=== PATIENT | female | born 1960 | race Caucasian/White ===

== ENCOUNTER 2019-06-13 08:09 | Outpatient (CLI) | payer BC, SELFPAY ==
--- NOTE | ~2019-06-13 | US_ITS ---
EXAMINATION: US carotid duplex BI DATE: 06/13/2019 09:07 INDICATION: Carotid bruit TECHNIQUE: Grayscale, color Doppler, and pulsed Doppler images of the cervical carotid arteries were obtained. The degree of vessel stenosis is placed in one of the following categories: normal, <50%, 5 0-69%, >=70% but less than near-occlusion, near-occlusion, or total occlusion. Note that percent sten osis relative to normal distal artery lumen diameter is indirectly measured from velocity measurement s as described by Haris, et al. Radiology 2003; 229:340-346. Notes: Normal: Peak systolic velocity <125 centimeters/sec and no plaque <50%. Peak systolic velocity <125 ( EDV <40; ICA/CCA PSV ratio <2.0; used these factors only a tandem lesions or low cardiac output or co ntralateral disease) 50-69 %: PSV 125-230 (EDV 40-100; ratio 2-4) >= 70% but less than near occlusion: PSV greater than 230 (EDV > 100; ratio> 4.0) Near Occlusion: PSV that is variable; markedly narrowed lumen Occlusion: Absent flow on color/spectral Doppler and no lumen on zepeda scale. COMPARISON: None. FINDINGS: RIGHT: The right common carotid artery (CCA) peak systolic velocity (PSV) is 68 cm/s. The right internal car otid artery (ICA) PSV is 83 cm/s. The right ICA end-diastolic velocity (EDV) is 35 cm/s. The right IC A/CCA PSV ratio is 1.2. The external carotid artery (ECA) PSV is 88 cm/s. There is antegrade flow in the right vertebral artery. LEFT: The left CCA PSV is 86 cm/s. The left ICA PSV is 102 cm/s. The left ICA EDV is 34 cm/s. The left ICA/ CCA PSV ratio is 1.2. The ECA PSV is 73 cm/s. There is antegrade flow in the left vertebral artery. IMPRESSION: 1. Less than 50% stenosis in the right internal carotid artery by sonographic criteria. 2. Less than 50% stenosis in the left internal carotid artery by sonographic criteria. Reviewed, dictated and finalized at location A. ICAL ACCOUNT SPECIALIST IMPRESSION: 1. Less than 50% stenosis in the right internal carotid artery by sonographic lissy castañeda. 2. Less than 50% stenosis in the left internal carotid artery by sonographic maury anton.
--- NOTE | ~2019-06-13 | DEXA_ITS ---
BMD(1) Young-Adult(2) Age-Matched(3) Region (g/cm2) T-score Z-score WHO Classification L1 0.976 -1.3 -0.7 Osteopenia L2 0.912 -2.5 -1.8 Osteoporosis L3 1.119 -0.8 -0.1 Normal L4 1.049 -1.3 -0.7 Osteopenia L1-L4 1.020 -1.4 -0.7 Osteopenia Trend: L1-L4 Change vs Change vs Measured Age BMD(1) Baseline Previous Date (years) (g/cm2) (%) (%) 06/13/2019 [age] 1.020 baseline - 1 - Statistically 68% of repeat scans fall within 1SD (+- 0.010 g/cm2 for AP Spine L1-L4) 2 - [place] (Combined NHANES (ages 20-30) / [employer] (ages 20-40)) AP Spine Reference Population (v112) 3 - Matched for Age, Weight (females 25-100 kg), Ethnic 11 - World Health Organization - Definition of Osteoporosis and Osteopenia for Women: Normal = T-score at or above -1.0 SD; Osteopenia = T-score between -1.0 and -2.5 SD; Osteoporosis = T-score at or below -2.5 SD; (WHO definitions only apply when a young healthy Women reference database is used to determine T-scores.) Printed: 06/13/2019 8:50:48 AM (13.60)76:3.00:50.00:12.0 0.00:11.28 0.60x1.05 23.6:%Fat=35.3% 0.00:0.00 0.00:0.00 Filename: [id number] Scan Mode: Standard;OneScan 37.0 [facility] [id number] BMD(1) Young-Adult(2,7) Age-Matched(3) Region (g/cm2) T-score Z-score WHO Classification Neck Left 0.869 -1.2 -0.3 Osteopenia Right 0.888 -1.1 -0.2 Osteopenia Mean 0.879 -1.1 -0.2 Osteopenia Difference 0.018 0.1 0.1 - Total Left 0.970 -0.3 0.2 Normal Right 0.965 -0.3 0.2 Normal Mean 0.967 -0.3 0.2 Normal Difference 0.006 0.0 0.0 - Hip [place] Length Comparison (mm) (Right = 97.6 mm) (Mean = 104.0 mm) (Left = 97.5 mm) Trend: Total Mean Change vs Change vs Measured Age BMD(1) Baseline Previous Date (years) (g/cm2) (%) (%) 06/13/2019 58.5 0.967 baseline - 1 - Statistically 68% of repeat scans fall within 1SD (+- 0.010 g/cm2 for DualFemur Total) 2 - [place] (Combined NHANES (ages 20-30) / [employer] (ages 20-40)) Femur Reference Population (v112) 3 - Matched for Age, Weight (females 25-100 kg), Ethnic 7 - [employer] Total T-score difference is 0.0. Asymmetry is None. 11 - World Health Organization - Definition of Osteoporosis and Osteopenia for Women: Normal = T-score at or above -1.0 SD; Osteopenia = T-score between -1.0 and -2.5 SD; Osteoporosis = T-score at or below -2.5 SD; (WHO definitions only apply when a young healthy Women reference database is used to determine T-scores.) Printed: 06/13/2019 8:50:48 AM (13.60); Filename: [id number]; Right Femur; 20.1:%Fat=30.3%; Neck Angle (deg)= 60; Scan Mode: Standard 37.0 uGy; Left Femur; 20.0:%Fat=32.0%; Neck Angle (deg)= 53; Scan Mode: Standard 37.0 uGy Finder[employer] [id number] Dear Nancy Barton, Your patient Sinita Simon completed a BMD test on 06/13/2019 using the Finderly DXA System (analysis version: 13.60) manufactured by [employer]. The following summarizes the results of our evaluation. PATIENT BIOGRAPHICAL: Name: Sintia Simon Date: 1960 Height: 62.5 in. Gender: Female Exam Date: 06/13/2019 Weight: 170.0 lbs. Indications: Caffeinated drinks, , Hip Pain Fract
== END 2019-06-13 08:10 | disposition home or self-care (01) ==
LOC: CHSIMG 08:13
PROVIDERS: PCP Internal Medicine; Visit Provider Internal Medicine
DX: M81.0 Age-related osteoporosis without current pathological fracture (principal); R09.89 Other specified symptoms and signs involving the circulatory and respiratory systems
CPT/HCPCS: 77080; 93880

== ENCOUNTER 2020-08-17 09:06 | Outpatient (CLI) | payer BC, SELFPAY ==
[2020-08-17 10:12] LABS: Anion Gap 9 mmol/L (8-16); Blood Urea Nitrogen 21 mg/dL (7-18); Calcium 9.6 mg/dL (8.5-10.1); Carbon Dioxide 30 mmol/L (21-32); Chloride 98 mmol/L (98-108); Estimated Glomerular Filt Rate > 60; Glucose 125 mg/dL (70-99); Osmolality Calculated 288 mOsm/kg (285-295); Potassium 3.9 mmol/L (3.5-5.1); Sodium 137 mmol/L (136-145)
== END 2020-08-17 09:07 | disposition home or self-care (01) ==
LOC: CHSLAB 09:09
PROVIDERS: PCP Internal Medicine; Visit Provider Specialist
DX: I25.10 Atherosclerotic heart disease of native coronary artery without angina pectoris (principal); I10 Essential (primary) hypertension; Z95.5 Presence of coronary angioplasty implant and graft
CPT/HCPCS: 36415; 80048; 83735

== ENCOUNTER 2022-06-08 09:27 | Outpatient (CLI) | payer BC, SELFPAY ==
--- NOTE | ~2022-06-08 | MM_ITS ---
EXAMINATION: MM screening jessica BI w elham HISTORY: Screening mammogram TECHNIQUE: Craniocaudal and mediolateral oblique 3-D tomosynthesis images were obtained and synthetic 2-D images were generated. CAD analysis was submitted and interpreted. COMPARISON: 02/18/2021, 01/27/2020 bilateral screening mammogram examinations BREAST PARENCHYMAL COMPOSITION: There are scattered areas of fibroglandular density. FINDINGS: There is no evidence of suspicious mass, calcification, or architectural distortion to sugg est malignancy in either breast. There has been no suspicious interval change. IMPRESSION: 1. No mammographic evidence of malignancy. 2. Recommend routine screening mammography in one year. BI-RADS Category 1: Negative Reviewed, dictated and finalized at location A. LIARY POWER EQUIPMENT OPERATOR
== END 2022-06-08 09:28 | disposition home or self-care (01) ==
LOC: CHSIMG 09:28
PROVIDERS: PCP Internal Medicine; Visit Provider Internal Medicine
DX: Z12.31 Encounter for screening mammogram for malignant neoplasm of breast (principal)
CPT/HCPCS: 77063; 77067

== ENCOUNTER 2023-06-12 11:55 | Outpatient (CLI) | payer BC, SELFPAY ==
--- NOTE | ~2023-06-12 | DEXA_ITS ---
Bone Density Report Name: TIFFANIE SEPULVEDA Age: 62 Sex: Female Ethnicity: White Date of : 1960 Indication: postmenopausal; screening for osteoporosis; Referring Provider: Nancy Barton Study: Bone densitometry was performed. Exam Date: June 12, 2023 Accession number: [id number] Bone Density: Region BMD T-score Z-score Classification AP Spine(L1, L2, L4) 0.880 -1.4 0.2 Osteopenia Femoral Neck (Left) 0.805 -0.4 1.0 Normal Total Hip (Left) 0.914 -0.2 0.9 Normal Femoral Neck (Right) 0.765 -0.8 0.6 Normal Total Hip (Right) 0.890 -0.4 0.7 Normal Femoral Neck Mean 0.785 -0.6 0.8 Normal Total Hip Mean 0.902 -0.3 0.8 Normal World Health Organization criteria for BMD impression classify patients as: Normal (T-score at or above -1.0), Osteopenia (T-score between -1.0 and -2.5), or Osteoporosis (T-score at or below -2.5). 10-year Fracture Risk(1): Major Osteoporotic Fracture 7.1% Hip Fracture 0.4% Reported Risk Factors: [place] (), Neck BMD=0.765, BMI=30.2 (1) FRAX(R) Version 3.08. Fracture probability calculated for an untreated patient. Fracture probability may be lower if the patient has received treatment. Clinical Information Provided by Patient: Has used the following medications: Vitamin D, multi Patient maximum height was 62.5 Menopause Age: 52 No regular weight bearing exercise Drinks caffeinated beverages Onset of menses at age 12 Number of children 2 Impression: The patient has low bone mass, based on the Total Spine T-score. Discussion: BONE DENSITY IS LOW AT ONE OR MORE SKELETAL SITES. This patient's lowest T-score is low at one or more skeletal sites. It meets the World Health Organization's (WHO) criteria for ?low bone mass? (T-score between -1.0 and -2.5). The patient's 10-year risk of fracture as calculated by FRAX is less than the threshold where pharmacological therapy is recommended by the National Osteoporosis Foundation (NOF). However, all treatment decisions require clinical judgment and consideration of individual patient factors, including patient preferences, comorbidities, previous drug use, risk factors not captured in the FRAX model (e.g., frailty, falls, vitamin D deficiency, increased bone turnover, interval significant decline in bone density) and possible under or overestimation of fracture risk by FRAX. The patient should follow a healthful lifestyle (good nutrition with adequate calcium and vitamin D, and appropriate weight-bearing exercise). Follow-Up: Consider repeating this study in 2 to 3 years to reassess this patient's status, or sooner if there is some new clinical indication. Reported by: Dr. Peter Acosta on 06/12/2023 12:40:00 PM. Reviewed, dictated and finalized at location A.
--- NOTE | ~2023-06-12 | MM_ITS ---
EXAMINATION: MM screening jessica BI w elham HISTORY: Screening TECHNIQUE: Craniocaudal and mediolateral oblique 3-D tomosynthesis images were obtained and synthetic 2-D images were generated. CAD analysis was submitted and interpreted. COMPARISON: Comparison to multiple prior studies sequentially, with oldest reviewed study dated 08/2019. BREAST PARENCHYMAL COMPOSITION: Not dense: There are scattered areas of fibroglandular density. FINDINGS: There is no evidence of suspicious mass, calcification, or architectural distortion to sugg est malignancy in either breast. There has been no suspicious interval change. IMPRESSION: 1. No mammographic evidence of malignancy. 2. Recommend routine screening mammography in one year. BI-RADS Category 1: Negative Reviewed, dictated and finalized at location A. T I FARMWORKER
== END 2023-06-12 11:56 | disposition home or self-care (01) ==
LOC: CHSIMG 11:56
PROVIDERS: PCP Internal Medicine; Visit Provider Internal Medicine
DX: Z12.31 Encounter for screening mammogram for malignant neoplasm of breast (principal); Z78.0 Asymptomatic menopausal state; M85.88 Other specified disorders of bone density and structure, other site
CPT/HCPCS: 77063; 77067; 77080

== ENCOUNTER 2023-09-27 08:08 | Outpatient (CLI) | payer BC, SELFPAY ==
[2023-09-27 08:34] LABS: Hemoglobin A1C 6.3 % (<5.7)
[2023-09-27 08:38] LABS: Anion Gap 8 mmol/L (4-12); Blood Urea Nitrogen 19 mg/dL (7-18); Calcium 9.2 mg/dL (8.5-10.1); Carbon Dioxide 32 mmol/L (21-32); Chloride 100 mmol/L (98-108); Estimated Glomerular Filt Rate > 60; Glucose 122 mg/dL (70-99); Osmolality Calculated 293 mOsm/kg (285-295); Potassium 3.5 mmol/L (3.5-5.1); Sodium 140 mmol/L (136-145)
== END 2023-09-27 08:09 | disposition home or self-care (01) ==
LOC: CHSLAB 08:09
PROVIDERS: PCP Internal Medicine; Visit Provider Internal Medicine
DX: E11.9 Type 2 diabetes mellitus without complications (principal)
CPT/HCPCS: 36415; 80048; 83036

== ENCOUNTER 2024-01-10 16:37 | Outpatient (CLI) | payer BC, SELFPAY ==
[2024-01-10 16:57] LABS: Add Urine Microscopic? NO; Appearance Urine Clear (Clear); Bilirubin Urine Negative (Negative); Blood Urine Negative (Negative); Color Urine Light Yellow (Yellow); Glucose Urine UA Negative (Negative); Hemoglobin 12.8 g/dL (12.0-15.0); Ketones Urine Negative (Negative); Leukocyte Esterase Ur Negative (Negative); Mean Corpuscular HGB Conc 34.6 g/dL (32-36); Mean Corpuscular Hemoglobin 29.9 pg (27.0-31.0); Mean Corpuscular Volume 86.4 fL (78.0-102.0); Mean Platelet Volume 9.7 fl (9.2-11.8); Nitrate Urine Negative (Negative); Platelet Count Result 212 K/mm3 (150-420); Protein Urine Negative (Negative); Red Blood Count 4.28 M/mm3 (4.20-5.40); Red Cell Distribution Width 12.9 % (11.6-14.4); Urobilinogen Urine 0.2 mg/dL (0.2-1.0); White Blood Count 6.1 K/mm3 (4.8-10.8)
[2024-01-10 17:11] LABS: Hemoglobin A1C 6.2 % (<5.7)
[2024-01-10 17:24] LABS: Alanine Aminotransferase 37 U/L (14-59); Albumin Level 4.2 g/dL (3.4-5.0); Alkaline Phosphatase 84 U/L (46-116); Anion Gap 11 mmol/L (4-12); Aspartate Amino Transferase 23 U/L (15-37); Bilirubin,Total 0.6 mg/dL (0.00-1.00); Blood Urea Nitrogen 18 mg/dL (7-18); Calcium 8.9 mg/dL (8.5-10.1); Carbon Dioxide 29 mmol/L (21-32); Chloride 98 mmol/L (98-108); Creatine Kinase 125 U/L (26-192); Estimated Glomerular Filt Rate 52; Free T3 2.41 pg/mL (2.18-3.98); Free T4 Free Thyroxine 1.26 ng/dL (0.76-1.46); Glucose 114 mg/dL (70-99); HDL Direct 46 mg/dL (40-60); NT Pro B Type Natriuretic Pept 15 pg/mL (0-125); Osmolality Calculated 288 mOsm/kg (285-295); Potassium 3.3 mmol/L (3.5-5.1); Sodium 138 mmol/L (136-145); Thyroid Stimulating Hormone 1.68 uIU/mL (0.36-3.74); Total Protein 7.2 g/dL (6.4-8.2); Triglycerides 450 mg/dL (0-150)
[2024-01-10 17:40] LABS: Cholesterol 141 mg/dL (0-200); LDL Cholesterol Calculated 5 mg/dL (<130)
[2024-01-10 17:41] LABS: LDL Cholesterol Direct 55 mg/dL (0-130)
== END 2024-01-10 16:38 | disposition home or self-care (01) ==
LOC: CHSLAB 16:40
PROVIDERS: PCP Internal Medicine; Visit Provider Internal Medicine
DX: I25.10 Atherosclerotic heart disease of native coronary artery without angina pectoris (principal); E03.4 Atrophy of thyroid (acquired); K21.9 Gastro-esophageal reflux disease without esophagitis; E78.2 Mixed hyperlipidemia; E11.59 Type 2 diabetes mellitus with other circulatory complications; N39.0 Urinary tract infection, site not specified
CPT/HCPCS: 36415; 80053; 80061; 81003; 82550; 83036; 83721; 83880; 84439; 84443; 84481; 85027; 87086

== ENCOUNTER 2024-01-29 07:53 | Outpatient (CLI) | payer BC, SELFPAY ==
[2024-01-29 08:32] LABS: Anion Gap 6 mmol/L (4-12); Blood Urea Nitrogen 13 mg/dL (7-18); Calcium 9.1 mg/dL (8.5-10.1); Carbon Dioxide 32 mmol/L (21-32); Chloride 101 mmol/L (98-108); Estimated Glomerular Filt Rate > 60; Glucose 117 mg/dL (70-99); LDL Cholesterol Direct 74 mg/dL (0-130); Osmolality Calculated 289 mOsm/kg (285-295); Potassium 4.1 mmol/L (3.5-5.1); Sodium 139 mmol/L (136-145)
== END 2024-01-29 07:54 | disposition home or self-care (01) ==
LOC: CHSLAB 07:54
PROVIDERS: PCP Internal Medicine; Visit Provider Internal Medicine Cardiovascular Disease
DX: I10 Essential (primary) hypertension (principal)
CPT/HCPCS: 36415; 80048; 83721

== ENCOUNTER 2024-06-14 08:37 | Outpatient (CLI) | payer BC, SELFPAY ==
--- NOTE | ~2024-06-14 | MM_ITS ---
EXAMINATION: MM screening jessica BI w elham HISTORY: Screening TECHNIQUE: Craniocaudal and mediolateral oblique 3-D tomosynthesis images were obtained and synthetic 2-D images were generated. CAD analysis was submitted and interpreted. COMPARISON: Comparison to multiple prior studies sequentially, with oldest reviewed study dated 08/2019. BREAST PARENCHYMAL COMPOSITION: Not dense: There are scattered areas of fibroglandular density. FINDINGS: There is no evidence of suspicious mass, calcification, or architectural distortion to sugg est malignancy in either breast. There has been no suspicious interval change. IMPRESSION: 1. No mammographic evidence of malignancy. 2. Recommend routine screening mammography in one year. BI-RADS Category 1: Negative Reviewed, dictated and finalized at location L. IOLOGY FELLOW
[2024-06-14 09:05] LABS: Add Urine Microscopic? YES; Appearance Urine Clear (Clear); Bilirubin Urine Negative (Negative); Blood Urine Negative (Negative); Color Urine Light Yellow (Yellow); Glucose Urine UA Negative (Negative); Ketones Urine Negative (Negative); Leukocyte Esterase Ur 1+ (Negative); Nitrate Urine Negative (Negative); Protein Urine Negative (Negative); Specific Grav Ur 1.015 (1.010-1.020); Urobilinogen Urine 0.2 mg/dL (0.2-1.0)
[2024-06-14 09:14] LABS: Bacteria Urine Trace /hpf; RBC Urine None seen /hpf (0-2); Squamous Epithelial Cell Urine Moderate /hpf (Few); WBC Urine 0-5 /hpf (0-3)
[2024-06-14 09:23] LABS: Hemoglobin A1C 6.4 % (<5.7)
[2024-06-14 09:42] LABS: Alanine Aminotransferase 35 U/L (14-59); Albumin Level 4.2 g/dL (3.4-5.0); Alkaline Phosphatase 88 U/L (46-116); Anion Gap 9 mmol/L (4-12); Aspartate Amino Transferase 18 U/L (15-37); Bilirubin,Total 0.7 mg/dL (0.00-1.00); Blood Urea Nitrogen 16 mg/dL (7-18); Calcium 9.3 mg/dL (8.5-10.1); Carbon Dioxide 32 mmol/L (21-32); Chloride 101 mmol/L (98-108); Cholesterol 160 mg/dL (0-200); Creatine Kinase 80 U/L (26-192); Estimated Glomerular Filt Rate > 60; Glucose 116 mg/dL (70-99); HDL Direct 54 mg/dL (40-60); LDL Cholesterol Calculated 41 mg/dL (<130); Osmolality Calculated 296 mOsm/kg (285-295); Potassium 4.1 mmol/L (3.5-5.1); Sodium 142 mmol/L (136-145); Total Protein 7.4 g/dL (6.4-8.2); Triglycerides 324 mg/dL (0-150)
== END 2024-06-14 08:38 | disposition home or self-care (01) ==
PROVIDERS: PCP Internal Medicine; Visit Provider Internal Medicine
DX: Z12.31 Encounter for screening mammogram for malignant neoplasm of breast (principal); E11.9 Type 2 diabetes mellitus without complications; E78.2 Mixed hyperlipidemia
CPT/HCPCS: 36415; 77063; 77067; 80053; 80061; 81001; 82550; 83036

== ENCOUNTER 2024-08-14 08:43 | Outpatient (CLI) | payer BC, SELFPAY ==
--- OUTSIDE RECORDS SUMMARY | 2024-08-14 09:29 | XMS_ITS | Encounter Summary ---
Author Organization [facility] Address [address] [place] [address] Care Team Providers Care Train Operations Supervisor Name Role Phone Renny Gambino MD Unavailable [phone] Beulah Anguiano APRN, RN DIABETES EDUCATOR-C Unavailable Nancy Barton MD Primary Care Provider Hasmukh Oden MD Unavailable [phone] Encounter Details Date Type Department Care Team (Late Contact Info) Description 08/17/2023 Abstract [facility] [address] [place] [phone] Renny Gambino MD [address] [place] [phone] Social History Tobacco Use Types Packs/Day Years Used Date Smoking Tobacco: Never Smokeless Tobacco: Never Alcohol Use Standard Drinks/Week Comments Yes 0 (1 standard drink = 0.6 oz pur e alcohol) Occasionally, very seldom Comments Unknown Sex and Gender Information Value Date Recorded Sex Assigned at Not on file Legal Sex Female 9:19 PM CDT Gender Identity Female 06/10/2021 11:08 AM J2EE ARCHITECT Sexual Orientation Not on file Occupation Industry Job Start Date Job End Date Not on file Not on file Not on file Not on file documented as of this encounter Plan of Treatment Upcoming Encounters Date Type Department Care Team ([facility] Contact Info) Description 02/13/2025 2:30 PM CDT [facility] [address] [place] [address] Beulah Anguiano, BALANCER SCALE, RN DIABETES EDUCATOR-C [address] [facility] [address] [place] [address] documented as of this encounter Procedures Procedure Name Priority Date/Time Associated Diagnosis Comments BASIC METABOLIC PANEL Routine 07/10/2023 CMP (ABSTRACTED LAB) Routine 05/19/2023 CBC (OUTSIDE LAB) Routine 05/19/2023 HEMOGLOBIN, GLYCOSYLATED Routine 05/19/2023 LIPID PANEL Routine 05/19/2023 documented in this encounter Results * (ABNORMAL) BASIC METABOLIC PANEL (07/10/2023) SODIUM S/P/B 139 35 - 146 POTASSIUM S/P/B 4.1 3.5 - 5.3 CO2 32 20 - 32 CHLORIDE S/P/B 100 98 - 110 GLUCOSE 120 65 - 99 mg/dL CALCIUM S/P/B 9.9 8.6 - 10.4 BUN 15 7 - 25 CREATININE S/P/B 0.72 0.5 - 1.05 EGFR NON-AFR. AMER. 94(A) <=90 07/10/2023 us Default History Genericprovider LABORATORY Final Result * CBC (OUTSIDE LAB) (05/19/2023) WBC 5.2 3.8 - 10.8 HGB 13.6 11.7 - 15.5 HCT 41.1 35.0 - 45.0 PLT 205 140 - 400 RBC 4.71 3.80 - 5.10 MCV 87.3 80.0 - 100.0 MCH 28.9 27.0 - 33.0 MCHC 33.1 32.0 - 36.0 RDW 13.1 11.0 - 15.0 MPV 10.3 7.5 - 12.5 ABS. NEUTROPHILS 2,590 1,500 - 7,800 ABS. LYMPHOCYTES 2,090 850 - 3,900 ABS. MONOCYTES 390 200 - 950 ABS. EOSINOPHILS 99 15 - 500 ABS. BASOPHILS 31 0 - 200 NEUTROPHILS % 49.8 LYMPHOCYTES % 40.2 MONOCYTES % 7.5 EOSINOPHILS % 1.9 BASOPHILS % 0.6 05/19/2023 us Default History Genericprovider LAB-OUTSIDE/ABST RACTED Final Result * HEMOGLOBIN, GLYCOSYLATED (05/19/2023) HGB A1C 6.3 <5.7 % VITAMIN D 1 25 DIHYDROXY S/P/B 45 30 - 100 TOTAL CK 80 29 - 143 TSH 2.42 0.40 - 4.50 FREE T4 1.1 0.8 - 1.8 FREE T3 2.9 2.3 - 4.2 05/19/2023 us Default History Genericprovider LABORATORY Final Result * (ABNORMAL) CMP (ABSTRACTED LAB) (05/19/2023) SODIUM S/P/B 139 135 - 146 POTASSIUM S/P/B 3.9 3.5 - 5.3 CHLORIDE S/P/B 102 98 - 110 CO2 25 20 - 32 BUN 13 7 - 25 CREATININE S/P/B 0.70 0.5 - 1.05 EGFR NON-AFR. AMER. 98(A) <=90 CALCIUM S/P/B 9.6 8.6 - 10.4 GLUCOSE 111 65 - 99 mg/dL TOTAL PROTEIN S/P/B 7.2 6.1 - 8.1 ALBUMIN S/P/B 4.6 3.6 - 5.1 AST 23 10 - 35 ALT 25 6 - 29 ALKALINE PHOSPHATASE S/P/B 71 37 - 153 BILIRUBIN TOTAL S/P/B 0.9 0.2 - 1.2 05/19/2023 us Default History Genericprovider LAB-OUTSIDE/ABST RACTED Final Result * LIPID PANEL (05/19/2023) CHOLESTEROL 155 <200 HDL 48 > or = 50 TRIGLYCERIDES 355 <150 NON HDL CHOLESTEROL 107 <130 CHOL/HDL RATIO 3.2 <5.0 LDL (CALCULATED) 64 05/19/2023 us Default History Genericprovider LABORATORY Final Result documented in this encounter Visit Diagnoses Not on filedocumented in this encounter Care Teams Train Operations Supervisor Relationship Specialty Start Date End Date Nancy Barton MD [address] [place] [phone] PCP - General INTERNAL MEDICINE 01/29/18 Renny Gambino MD [address] [place] [phone] [place] Material Requirements Planning Manager CARDIOVASCULAR DISEASE 12/23/16 11/30/23 Beulah Anguiano APRN, RN DIABETES EDUCATOR-C [address] [facility] [address] [place] [phone] CARDIOVASCULAR DISEASE 05/31/17 Hasmukh Oden MD [address] [place] [address] Consulting Physician INTERVENTIONAL CARDIOLOGY 02/18/24 documented as of this encounter
--- OUTSIDE RECORDS SUMMARY | 2024-08-14 09:29 | XMS_ITS | Clinical Summary ---
Author Organization [facility] Address [address] [facility], [address] [address] Phone Care Team Providers Care Ore Puncher Name Role Phone Finesse May MD Unavailable Nancy Barton MD Primary Care Provider Allergies Active Allergy Reactions Criticality Noted Date Comments Hydrochlorothiazide Other (see Comments) 2015 Facial tingling Medications ASPIRIN 81 PO Take 81 mg by mouth daily. 4 Active Multiple Vitamin (MULTIVITAMIN ADULT PO) Take 1 Tablet by mouth daily. Active Coenzyme Q10 200 MG Capsule Take 1 Tablet by mouth daily. Active carvedilol (COREG) 25 MG Tablet Take 25 mg by mouth 2 times daily. 5 Active chlorthalidone (HYGROTON) 25 MG Tablet Take 12.5 mg by mouth daily. 5 Active Cholecalciferol (Vitamin D3) 125 mcg Capsule Take 5,000 Units by mouth daily. Active clobetasol (TEMOVATE) 0.05 % Ointment Apply three times a week. 4 Active estradiol (ESTRACE) 0.1 MG/GM Cream by Vaginal route twice a week. 3 Active clopidogrel (PLAVIX) 75 MG Tablet Take 1 Tablet by mouth daily. 4 Active levothyroxine (SYNTHROID) 75 MCG Tablet Take 75 mcg by mouth daily. Active lisinopril (PRINIVIL, ZESTRIL) 40 MG Tablet Take 1 Tablet by mouth every morning. 4 Active metFORMIN (GLUCOPHAGE-XR) 500 MG TABLET SR 24 HR Take 500 mg by mouth daily. 5 Active nitroGLYCERIN (NITROSTAT) 0.4 MG SL Tablet 0.4 mg by Sublingual route. 4 Active pantoprazole (PROTONIX) 20 MG Tablet Delayed Response Take 20 mg by mouth daily. 1 Active rosuvastatin (CRESTOR) 20 MG Tablet Take 20 mg by mouth daily. 1 Active ZINC PICOLINATE PO Take 25 mg by mouth daily. Active Ascorbic Acid (VITAMIN C PO) Take 500 mg by mouth daily. Active Active Problems No known active problems Encounters Date Type Department Care Team Description 08/08/2024 Travel [facility] [address] Finesse May MD Care Management 08/06/2024 9:30 AM CDT [facility] [phone] Finesse May MD Special screening for malignant neoplasms, colon (Primary Dx) Discharge Disposition: Discharged to home or Selfcare 08/06/2024 Travel from Last 3 Months Family History Medical History Relation Name Comments Diabetes Brother 1 Heart Disease Brother 1 Hypertension Brother 1 Thyroid Disease Brother 1 Hypertension Brother 2 diverticulitis Brother 2 Thyroid Disease Daughter 1 Thyroid Disease Daughter 2 Cancer Father liver cancer Diabetes Father Heart Disease Father Heart Surgery Father High Cholesterol Father Hypertension Father Liver Cancer Father Other-comment Father Cancer Mother pancreatic canc er Hypertension Mother Pancreatic Cancer Mother Relation Name Status Comments Brother 1 Alive Brother 2 Alive Daughter 1 Alive Daughter 2 Alive Father Mother Social History Tobacco Use Types Packs/Day Years Used Date Smoking Tobacco: Never Smokeless Tobacco: Never Tobacco Cessation:Counseling Given: No Alcohol Use Standard Drinks/Week Comments Yes 0 (1 standard drink = 0.6 oz pur e alcohol) very rare Sexually Active Control Partners Comments Yes Post-menopausal Male Comments Unknown Sex and Gender Information Value Date Recorded Sex Assigned at Not on file Legal Sex Female 2:51 PM FREEDOM OF INFORMATION OFFICER Gender Identity Not on file Sexual Orientation Not on file Last Filed Vital Signs Vital Sign Reading Time Taken Comments Blood Pressure 150/90 08/06/2024 9:36 AM CDT Pulse 68 08/06/2024 9:36 AM CDT Temperature 36.3 C (97.3 F) 08/06/2024 9:36 AM CDT Respiratory Rate 20 08/06/2024 9:36 AM CDT Oxygen Saturation 98% 08/06/2024 9:36 AM CDT Inhaled Oxygen Concentration - - Weight 73.5 kg (162 lb) 08/06/2024 9:36 AM CDT Height 158.8 cm (5' 2.5 ) 08/06/2024 9:36 AM CDT Body Mass Index 29.16 08/06/2024 9:36 AM CDT Plan of Treatment Upcoming Encounters Date Type Department Care Team (Late st Contact Info) Description 08/26/2024 10:30 AM CDT [facility] [address] [place] [address] Finesse May MD #[address] [address] 08/26/2024 10:30 AM CDT - 08/26/2024 11:00 AM CDT [facility] [address] [place] [address] Finesse May MD #[address] [address] COLONOSCOPY Scheduled Procedures Name Priority Associated Diagnoses Date/Ti me COLONOSCOPY SPECIAL SCREENING FOR MALIGNANT NEOPLASMS COLON 08/26/2024 10:30 AM CDT Health Maintenance Due Date Last Done Comments Hepatitis C Virus (HCV) Screening 1960 Mammogram 1960 Pap Smear 1981 Cervical Cancer Screening (CCS) 1990 HPV/Cotest 1990 Colonoscopy 2005 Colorectal Cancer Screening 2005 Cologuard 2010 Immunochemical Fecal Occult Blood 2010 Zoster Immunization (1 of 2) 2010 Respiratory Syncytial Virus (RSV) Immunization (Adult) (1 - Risk 60-74 years 1-dose series) 2020 SARS-COV-2 Immunization (1 - 2023-25 season) 2023 Pneumococcal Immunization (5 0+ years) (3 of 3 - PCV20 or PCV21) 05/23/2024 05/23/2019, 08/16/2018 Influenza Immunization (Seas on Ended) 2024 05/23/2019 TdaP Immunization Completed 06/15/2023, 01/10/2018 Hepatitis B Immunization Aged Out No longer eligible based on patient's age to complete this topic Meningococcal Immunization (ACWY) Aged Out No longer eligible b ased on patient's age to complete this topic Rotavirus Immunization Aged Out No lo nger eligible based on patient's age to complete this topic Insurance [facility] Care Teams Ore Puncher Relationship Specialty Start Date End Date Nancy Barton MD [address] [place] [address] PCP - General Primary Care 08/02/24 Finesse May MD [address] [address] Consulting Physician Colon and Rectal Surgery 08/02/24
--- OUTSIDE RECORDS SUMMARY | 2024-08-14 09:29 | XMS_ITS | Encounter Summary ---
Author Organization [facility] Address [address] [place] [address] Care Team Providers Care Financial Services Professional Name Role Phone Renny Gambino MD Unavailable [phone] Beulah Anguiano APRN, SLEEP TECH-C Unavailable Nancy Barton MD Primary Care Provider Hasmukh Oden MD Unavailable [phone] Encounter Details Date Type Department Care Team (Late Contact Info) Description 10/04/2022 Abstract [facility] [address] [place] [address] Renny Gambino MD [address] [place] [address] Social History Tobacco Use Types Packs/Day Years Used Date Smoking Tobacco: Never Smokeless Tobacco: Never Alcohol Use Standard Drinks/Week Comments Yes 0 (1 standard drink = 0.6 oz pur e alcohol) rare Comments Unknown Sex and Gender Information Value Date Recorded Sex Assigned at Not on file Legal Sex Female 9:19 PM CDT Gender Identity Female 06/10/2021 11:08 AM 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 Sexual Orientation Not on file Occupation Industry Job Start Date Job End Date Not on file Not on file Not on file Not on file documented as of this encounter Plan of Treatment Upcoming Encounters Date Type Department Care Team ([facility] Contact Info) Description 02/13/2025 2:30 PM CDT Office Visit [facility] eld [address] [place] [address] Beulah Anguiano, OLDER WORKER SPECIALIST, SLEEP TECH-C [address] [facility] [address] [place] [address] documented as of this encounter Procedures Procedure Name Priority Date/Time Associated Diagnosis Comments LIPID PANEL Routine 02/12/2022 CMP (ABSTRACTED LAB) Routine 02/11/2022 CBC (OUTSIDE LAB) Routine 02/11/2022 HEMOGLOBIN, GLYCOSYLATED Routine 02/11/2022 CK (CPK) Routine 02/11/2022 documented in this encounter Results * LIPID PANEL (02/12/2022) Pathologist [facility] CHOLESTEROL 154 <200 HDL 50 > or=50 TRIGLYCERIDES 349 <150 NON HDL CHOLESTEROL 104 <130 CHOL/HDL RATIO 3.1 <5.0 LDL (CALCULATED) 62 <100 02/12/2022 us Default History Genericprovider LABORATORY Final Result * CBC (OUTSIDE LAB) (02/11/2022) Pathologist [facility] WBC 5.1 3.8 - 10.8 HGB 13.3 11.7 - 15.5 HCT 40.6 35.0 - 45.0 PLT 234 140 - 400 RBC 4.60 3.80 - 5.10 02/11/2022 us Default History Genericprovider LAB-OUTSIDE/ABST RACTED Final Result * CK (CPK) (02/11/2022) Pathologist [facility] CPK 100 29 - 143 TSH 1.82 0.40 - 4.50 FREE T4 1.1 0.8 - 1.8 FREE T3 2.9 2.3 - 4.2 02/11/2022 us Default History Genericprovider LABORATORY Final Result * HEMOGLOBIN, GLYCOSYLATED (02/11/2022) HGB A1C 6.4 <5.7 % 02/11/2022 us Default History Genericprovider LABORATORY Final Result * CMP (ABSTRACTED LAB) (02/11/2022) SODIUM S/P/B 137 135 - 146 POTASSIUM S/P/B 3.9 3.5 - 5.3 CHLORIDE S/P/B 99 98 - 110 CO2 28 20 - 32 BUN 17 7 - 25 CREATININE S/P/B 0.82 0.5 - 1.0 EGFR NON-AFR. AMER. 81 <=90 CALCIUM S/P/B 9.6 8.6 - 10.4 GLUCOSE 127 65 - 99 mg/dL TOTAL PROTEIN S/P/B 7.6 6.1 - 8.1 ALBUMIN S/P/B 4.8 3.6 - 5.1 AST 20 10 - 35 ALT 24 6 - 29 ALKALINE PHOSPHATASE S/P/B 64 37 - 153 BILIRUBIN TOTAL S/P/B 0.6 0.2 - 1.2 02/11/2022 us Default History Genericprovider LAB-OUTSIDE/ABST RACTED Final Result documented in this encounter Visit Diagnoses Not on filedocumented in this encounter Care Teams Financial Services Professional Relationship Specialty Start Date End Date Nancy Barton MD [address] [place] [address] PCP - General INTERNAL MEDICINE 01/29/18 Renny Gambino MD [address] [place] [phone] [place] Floor Supervisor CARDIOVASCULAR DISEASE 12/23/16 11/30/23 Beulah Anguiano, HAFSA, SLEEP TECH-C [address] [facility] [address] [place] [address] CARDIOVASCULAR DISEASE 05/31/17 Hasmukh Oden MD [address] [place] [address] Consulting Physician INTERVENTIONAL CARDIOLOGY 02/18/24 documented as of this encounter
--- OUTSIDE RECORDS SUMMARY | 2024-08-14 09:29 | XMS_ITS | Encounter Summary ---
Author Organization [facility] Address [address] [place] [address] Care Team Providers Care Director Of Compliance Name Role Phone Renny Gambino MD Unavailable [phone] Beulah Anguiano APRN, ESTIMATOR JEWELRY-C Unavailable Nancy Barton MD Primary Care Provider [phone] Hasmukh Oden MD Unavailable Encounter Details Date Type Department Care Team (Late Contact Info) Description 05/12/2023 Abstract [facility] [address] [place] [phone] Renny Gambino MD [address] [place] [address] Social History Tobacco Use Types Packs/Day Years Used Date Smoking Tobacco: Never Smokeless Tobacco: Never Alcohol Use Standard Drinks/Week Comments Yes 0 (1 standard drink = 0.6 oz pur e alcohol) Occasionally, very seldom Comments Unknown Sex and Gender Information Value Date Recorded Sex Assigned at Not on file Legal Sex Female 9:19 PM CDT Gender Identity Female 06/10/2021 11:08 AM DIRECTOR TRADING Sexual Orientation Not on file Occupation Industry Job Start Date Job End Date Not on file Not on file Not on file Not on file documented as of this encounter Plan of Treatment Upcoming Encounters Date Type Department Care Team ([facility] Contact Info) Description 02/13/2025 2:30 PM CDT [facility] [address] [place] [address] Beulah Anguiano, SOCIAL STUDIES TEACHER, ESTIMATOR JEWELRY-C [address] [facility] [address] [place] [address] documented as of this encounter Procedures Procedure Name Priority Date/Time Associated Diagnosis Comments CMP (ABSTRACTED LAB) Routine 10/19/2022 TSH (OUTSIDE LAB) Routine 10/18/2022 CBC (OUTSIDE LAB) Routine 10/18/2022 HEMOGLOBIN, GLYCOSYLATED Routine 10/18/2022 LIPID PANEL Routine 10/18/2022 documented in this encounter Results * CMP (ABSTRACTED LAB) (10/19/2022) SODIUM S/P/B 139 135 - 146 POTASSIUM S/P/B 4.3 3.5 - 5.3 CHLORIDE S/P/B 103 98 - 110 CO2 28 20 - 32 BUN 13 7 - 25 CREATININE S/P/B 0.75 0.5 - 1.05 CALCIUM S/P/B 9.6 8.6 - 10.4 GLUCOSE 112 65 - 99 mg/dL TOTAL PROTEIN S/P/B 6.9 6.1 - 8.1 ALBUMIN S/P/B 4.4 3.6 - 5.1 AST 16 10 - 35 ALT 22 6 - 29 ALKALINE PHOSPHATASE S/P/B 67 37 - 153 BILIRUBIN TOTAL S/P/B 0.8 0.2 - 1.2 10/19/2022 us Default History Genericprovider LAB-OUTSIDE/ABST RACTED Final Result * CBC (OUTSIDE LAB) (10/18/2022) WBC 4.9 3.8 - 10.8 HGB 13.1 11.7 - 15.5 HCT 38.6 35.0 - 45.0 PLT 192 140 - 400 RBC 4.43 3.80 - 5.10 MCV 87.1 7.5 - 12.5 MCH 29.6 27.0 - 33.0 MCHC 33.9 32.0 - 36.0 RDW 13.5 11.0 - 15.0 MPV 9.9 7.5 - 12.5 ABS. NEUTROPHILS 2,205 1,500 - 7,800 ABS. LYMPHOCYTES 2,097 850 - 3,900 ABS. MONOCYTES 500 200 - 950 ABS. EOSINOPHILS 78 15 - 500 ABS. BASOPHILS 20 0 - 200 NEUTROPHILS % 45 LYMPHOCYTES % 42.8 MONOCYTES % 10.2 EOSINOPHILS % 1.6 BASOPHILS % 0.4 10/18/2022 Result Nadir Barton MD LAB-OUTSIDE/ABSTRACTED Final Result * TSH (OUTSIDE LAB) (10/18/2022) Pathologist [facility] TSH 1.48 0.40 - 4.50 FREE T4 1.3 0.8 - 1.8 FREE T3 2.8 2.3 - 4.2 10/18/2022 Result Nadir Barton MD LAB-OUTSIDE/ABSTRACTED Final Result * HEMOGLOBIN, GLYCOSYLATED (10/18/2022) Pathologist [facility] HGB A1C 6.3 <5.7 % 10/18/2022 Result Nadir Barton MD LABORATORY Final Result * LIPID PANEL (10/18/2022) CHOLESTEROL 151 <200 HDL 49 >or=50 TRIGLYCERIDES 291 <150 NON HDL CHOLESTEROL 102 <130 CHOL/HDL RATIO 3.1 <5.0 LDL (CALCULATED) 64 10/18/2022 Result Nadir Barton MD LABORATORY Final Result documented in this encounter Visit Diagnoses Not on filedocumented in this encounter Care Teams Director Of Compliance Relationship Specialty Start Date End Date Nancy Barton MD [address] [place] [phone] PCP - General INTERNAL MEDICINE 01/29/18 Renny Gambino MD [address] [place] [address] [employer] Curriculum And Assessment Director CARDIOVASCULAR DISEASE 12/23/16 11/30/23 Beulah Anguiano APRN, ESTIMATOR JEWELRY-C [address] [facility] [address] [place] [address] CARDIOVASCULAR DISEASE 05/31/17 Hasmukh Oden MD [address] [place] [address] Consulting Physician INTERVENTIONAL CARDIOLOGY 02/18/24 documented as of this encounter
--- OUTSIDE RECORDS SUMMARY | 2024-08-14 09:29 | XMS_ITS | Encounter Summary ---
Author Organization [facility] Address [address] [place] [address] Care Team Providers Care Adolescent Coordinator Name Role Phone Renny Gambino MD Unavailable [phone] Beulah Anguiano APRN, EDUCATIONAL INSTITUTION CURATOR-C Unavailable [phone] Nancy Barton MD Primary Care Provider [phone] Hasmukh Oden MD Unavailable Encounter Details Date Type Department Care Team (Late Contact Info) Description 11/16/2017 Abstract [facility] [address] [place] [address] Renny Gambino MD [address] [place] [address] Social History Tobacco Use Types Packs/Day Years Used Date Smoking Tobacco: Never Smokeless Tobacco: Never Alcohol Use Standard Drinks/Week Comments Yes 0 (1 standard drink = 0.6 oz pur e alcohol) rare Comments Unknown Sex and Gender Information Value Date Recorded Sex Assigned at Not on file Legal Sex Female 9:19 PM CDT Gender Identity Female 06/10/2021 11:08 AM FACING CUTTING MACHINE OPERATOR Sexual Orientation Not on file Occupation Industry Job Start Date Job End Date Not on file Not on file Not on file Not on file documented as of this encounter Plan of Treatment Upcoming Encounters Date Type Department Care Team (Late Contact Info) Description 02/13/2025 2:30 PM CDT [facility] [address] [place] [address] Beulah Anguiano APRN, EDUCATIONAL INSTITUTION CURATOR-C [address] [facility] [address] [place] [address] documented as of this encounter Procedures Procedure Name Priority Date/Time Associated Diagnosis Comments CMP (OUTSIDE LAB) Routine 11/15/2017 LIPID PANEL Routine 11/15/2017 documented in this encounter Results * CMP (OUTSIDE LAB) (11/15/2017) SODIUM S/P/B 139 POTASSIUM S/P/B 4.4 CHLORIDE S/P/B 104 CO2 25 BUN 20 CREATININE S/P/B 0.79 0.5 - 1.0 CALCIUM S/P/B 10.1 GLUCOSE 113 mg/dL TOTAL PROTEIN S/P/B 7.7 ALBUMIN S/P/B 4.8 3.5 - 5.0 AST 23 ALT 29 ALKALINE PHOSPHATASE S/P/B 76 BILIRUBIN TOTAL S/P/B 1.0 11/15/2017 us Doc [facility] Abstract LAB-OUTSIDE/ABSTRACTED Final Result * LIPID PANEL (11/15/2017) CHOLESTEROL 160 HDL 51 TRIGLYCERIDES 253 CHOL/HDL RATIO 3.1 DIRECT LDL 69 11/15/2017 us Doc [facility] Abstract LABORATORY Final Result documented in this encounter Visit Diagnoses Not on filedocumented in this encounter Care Teams Adolescent Coordinator Relationship Specialty Start Date End Date Nancy Barton MD [address] [place] [address] PCP - General INTERNAL MEDICINE 01/29/18 Renny Gambino MD [address] [place] [address] [employer] Teacher CARDIOVASCULAR DISEASE 12/23/16 11/30/23 Beulah Anguiano APRN, EDUCATIONAL INSTITUTION CURATOR-C [address] [facility] [address] [place] [address] CARDIOVASCULAR DISEASE 05/31/17 Hasmukh Oden MD [address] [place] [phone] Consulting Physician INTERVENTIONAL CARDIOLOGY 02/18/24 documented as of this encounter
--- OUTSIDE RECORDS SUMMARY | 2024-08-14 09:29 | XMS_ITS | Clinical Summary ---
Author Organization [facility] Address [address] [place] [address] Care Team Providers Care Pigs Feet Finisher Name Role Phone Beulah Anguiano APRN, NP-C Unavailable Nancy Barton MD Primary Care Provider [phone] Hasmukh Oden MD Unavailable [phone] Allergies Active Allergy Reactions Criticality Noted Date Comments Hydrochlorothiazide Other (see comment) 016 Facial tingling Medications aspirin 81 MG tablet Take by mouth daily. 10/21/19 04 Active levothyroxine 75 MCG tablet Take 1 tablet (75 mcg total) by mouth daily. Active Coenzyme Q10 (CO Q 10 OR) Take 2 tablets by mouth daily. Active Zinc 25 MG Tab Take 25 mg by mouth daily. Active vitamin D3, cholecalcifero l, 5000 UNITS capsule Take 1 capsule (125 mcg total) by mouth daily. Active pantoprazole EC 20 MG tablet Take 1 tablet (20 mg total) by mouth daily. 01/13/20 21 Active rosuvastatin 20 MG tablet Take 1 tablet (20 mg total) by mouth daily. 02/20/20 21 Active estradiol (ESTRACE) 0.1 MG/GM vaginal cream Place vaginally 2 (two) times a week. 03/14/20 23 Active clopidogrel (PLAVIX) 75 MG tablet take one tablet by mouth daily 90 tablet 3 08/15/19 24 Active Multiple Vitamins-[place] als (ONE A DAY WOMEN 50 PLUS OR) Take 1 tablet by mouth daily. Active clobetasol (TEMOVATE) 0.05 % ointment Apply topically as needed. 10/05/19 24 Active nitroglycerin (NITROSTAT) 0.[address] 1 tablet (0.4 mg total) under the tongue every 5 (five) minutes as needed for Chest Pain. 25 tablet 1 02/14/20 24 Active lisinopril (PRINIVIL) 40 MG tablet TAKE ONE TABLET BY MOUTH DAILY 90 tablet 2 02/23/20 24 Active carvedilol (COREG) 25 MG tablet Take 1 tablet (25 mg total) by mouth 2 (two) times daily. 180 tablet 2 05/27/19 25 Active chlorthalidone (HYGROTEN) 25 MG tablet Take 0.5 tablets (12.5 mg total) by mouth daily. 45 tablet 2 07/21/19 25 Active chlorthalidone (HYGROTEN) 25 MG tablet Take 0.5 tablets (12.5 mg total) by mouth daily. 02/14/20 24 025 Discontinued Active Problems Problem Noted Date Diagnosed Date S/P coronary artery stent placement 04/22/2017 Coronary artery disease Hyperlipidemia Hypertension Hypothyroid Resolved Problems Problem Noted Date Diagnosed Date Resolved Date Abnormal stress test 01/18/2017 017 Encounters Date Type Department Care Team Description 08/06/2024 Telephone [facility] [address] [place] [address] Beulah Anguiano, WALL CLEANER, MANAGER GRANT-C Medication from Last 3 Months Family History Medical History Relation Comments Diabetes Brother 1 Heart Disease Brother 1 Hypertension Brother 1 Hypertension Brother 2 Cancer Father Diabetes Father Heart Disease Father Hypertension Father Diabetes Maternal Aunt Hypertension Maternal Aunt Diabetes Maternal Grandmother Heart Disease Maternal Grandmother Hypertension Maternal Grandmother Diabetes Maternal Uncle Cancer Mother Hypertension Mother Heart Disease Paternal Grandfather Hypertension Paternal Grandfather Stroke Paternal Grandfather Arthritis Paternal Grandmother Hypertension Paternal Grandmother Relation Status Comments Brother 1 Alive PCI, CAD, Diabet ic Brother 2 Alive HTN Father Alive CABG, CAD, Maternal Aunt Maternal Grandmother Maternal Uncle Mother HTN, Cancer Paternal Grandfather Paternal Grandmother Social History Tobacco Use Types Packs/Day Years Used Date Smoking Tobacco: Never Smokeless Tobacco: Never Tobacco Cessation:Counseling Given: Not Answered Alcohol Use Standard Drinks/Week Comments Yes 0 (1 standard drink = 0.6 oz pur e alcohol) Occasionally, very seldom Comments Unknown Sex and Gender Information Value Date Recorded Sex Assigned at Not on file Legal Sex Female 9:19 PM CDT Gender Identity Female 06/10/2021 11:08 AM 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 Sexual Orientation Not on file Occupation Industry Job Start Date Job End Date Not on file Not on file Not on file Not on file Last Filed Vital Signs Vital Sign Reading Time Taken Comments Blood Pressure 142/90 02/14/2024 3:22 PM CDT bp recheck Pulse 65 02/14/2024 2:35 PM CDT Temperature 36.2 C (97.2 F) 01/23/2013 11:58 AM CDT Respiratory Rate 18 02/14/2024 2:35 PM CDT Oxygen Saturation 98% 02/14/2024 2:3 5 PM CDT Inhaled Oxygen Concentration - - Weight 73.8 kg (162 lb 12.8 oz) 024 2:35 PM CDT Height 157.5 cm (5' 2 ) 02/14/2024 2:35 PM CDT Body Mass Index 29.78 02/14/2024 2:35 PM CDT Plan of Treatment Upcoming Encounters Date Type Department Care Team ([facility] st Contact Info) Description 02/13/2025 2:30 PM CDT Office Visit [facility] [address] [place] [address] Beulah Anguiano, WALL CLEANER, MANAGER GRANT-C [address] [facility] [address] [place] [address] Health Maintenance Due Date Last Done Comments ASCVD Statin 1960 Cervical Cancer Screening Pa p Smear (Age 30 to 64) Every 3 Years 1960 Colorectal Cancer Screening Colonoscopy (10 Years) 1960 Annual Physical 12/10/1963 Hepatitis C 1978 Cervical Cancer Screening Pa p with HPV Testing (Age 30 to 64) Every 5 Years 1990 Cervical Cancer Screening wi th HPV 1990 Mammogram Screening 2000 Zoster Vaccines (1 of 2) 2010 RSV Immunization or 60+ Years (1 - Risk 60-74 years 1-dose series) 2020 COVID-19 Vaccine (1 - 2023-2 5 season) 2023 Pneumococcal Vaccine: 50+ Years (3 of 3 - PCV20 or PCV21) 05/23/2024 05/23/2019, 08/16/2018 DTaP, Tdap and Td Vaccines ( 2 - Td or Tdap) 01/11/2028 01/10/2018 Meningococcal B Vaccine Aged Out No l onger eligible based on patient's age to complete this topic Meningococcal Vaccine Aged Out No yusuf katie eligible based on patient's age to complete this topic RSV Immunizations Under 20 Months Aged Out No longer eligible b ased on patient's age to complete this topic Insurance [employer] [facility] [employer] [facility] Care Teams Pigs Feet Finisher Relationship Specialty Start Date End Date Nancy Barton MD [address] [place] [address] PCP - General INTERNAL MEDICINE 01/29/18 Beulah Anguiano APRN, MANAGER GRANT-C [address] [facility] [address] [phone] CARDIOVASCULAR DISEASE 05/31/17 Hasmukh Oden MD [address] [place] [address] Consulting Physician INTERVENTIONAL CARDIOLOGY 02/18/24
--- NOTE | 2024-08-14 11:00 | NEURO_ITS ---
Impression: # Complains of increasing tingling in feet. Known diabetic. ? # Normal Nerve Conduction Study. ? # Normal needle/EMG exam. ? # Clinical correlation recommended. Nerve Conduction Studies Anti Sensory Summary Table ?Stim Site NR Peak (ms) P-T Amp (?V) Site1 Site2 Delta-P (ms) Dist (cm) Ferny (m/s) Left Sup Fibular Anti Sensory (Ant Lat Mall) 14 cm ? 3.6 9.3 14 cm Ant Lat Mall 3.6 16.0 44 Right Sup Fibular Anti Sensory (Ant Lat Mall) 14 cm ? 3.6 13.5 14 cm Ant Lat Mall 3.6 16.0 44 Left Sural Anti Sensory (Lat Mall) Calf ? 3.5 22.5 Calf Lat Mall 3.5 16.0 46 Right Sural Anti Sensory (Lat Mall) Calf ? 3.5 16.9 Calf Lat Mall 3.5 16.0 46 Motor Summary Table ?Stim Site NR Onset (ms) O-P Amp (mV) Site1 Site2 Delta-0 (ms) Dist (cm) Ferny (m/s) Left Peroneal Motor (Vastus Med) Ankle ? 4.1 5.5 Popit Ankle 8.6 38.0 44 Popit ? 12.7 4.9 Right Peroneal Motor (Vastus Med) Ankle ? 4.5 2.8 Popit Ankle 8.3 37.0 45 Popit ? 12.8 2.3 Left Tibial Motor (Abd Paz Brev) Ankle ? 4.6 1.4 Knee Ankle 9.0 39.0 43 Knee ? 13.6 1.0 Right Tibial Motor (Abd Paz Brev) Ankle ? 4.5 0.8 Knee Ankle 8.5 37.0 44 Knee ? 13.0 2.2 F Wave Studies ?NR F-Lat (ms) L-R F-Lat (ms) Left Peroneal (Mrkrs) (EDB) ? 53.51 0.08 Right Peroneal (Mrkrs) (EDB) ? 53.44 0.08 Left Tibial (Mrkrs) (Abd Hallucis) ? 55.20 0.12 Right Tibial (Mrkrs) (Abd Hallucis) ? 55.09 0.12 EMG ?Side Muscle Nerve Root Ins Act Fibs Amp Dur Recrt Comment Right AntTibialis Dp Br Fibular L4-5 Nml Nml Nml Nml Nml Right Gastroc Tibial S1-2 Nml Nml Nml Nml Nml Right Fibularis Long Sup Br Fibular L5-S1 Nml Nml Nml Nml Nml Right Flex Dig Long Tibial L5-S2 Nml Nml Nml Nml Nml Right Ext Dig Brev Dp Br Fibular L5, S1 Nml Nml Nml Nml Nml Right QuadratusFem QuadFemoris L4-5, S1 Nml Nml Nml Nml Nml Left AntTibialis Dp Br Fibular L4-5 Nml Nml Nml Nml Nml Left Gastroc Tibial S1-2 Nml Nml Nml Nml Nml Left Fibularis Long Sup Br Fibular L5-S1 Nml Nml Nml Nml Nml Left Flex Dig Long Tibial L5-S2 Nml Nml Nml Nml Nml Left Ext Dig Brev Dp Br Fibular L5, S1 Nml Nml Nml Nml Nml Left QuadratusFem QuadFemoris L4-5, S1 Nml Nml Nml Nml Nml MTDD
== END 2024-08-14 08:44 | disposition home or self-care (01) ==
LOC: ANHNEURO 08:53
PROVIDERS: PCP Internal Medicine; Visit Provider Internal Medicine
DX: G62.9 Polyneuropathy, unspecified (principal)
CPT/HCPCS: 95886; 95910

== ENCOUNTER 2025-02-12 07:59 | Outpatient (CLI) | payer BC, SELFPAY ==
[2025-02-12 08:15] LABS: Add Urine Microscopic? YES; Appearance Urine Clear (Clear); Glucose Urine UA Negative (Negative); Leukocyte Esterase Ur Trace (Negative); Nitrate Urine Negative (Negative); Specific Grav Ur 1.025 (1.010-1.020)
[2025-02-12 08:16] LABS: Hematocrit 39.4 % (35.0-49.0); Hemoglobin 13.3 g/dL (12.0-15.0); Mean Corpuscular HGB Conc 33.8 g/dL (32-36); Mean Corpuscular Hemoglobin 29.4 pg (27.0-31.0); Mean Corpuscular Volume 87.0 fL (78.0-102.0); Platelet Count Result 182 K/mm3 (150-420); Red Blood Count 4.53 M/mm3 (4.20-5.40); White Blood Count 5.4 K/mm3 (4.8-10.8)
[2025-02-12 08:30] LABS: Hemoglobin A1C 6.2 % (<5.7)
[2025-02-12 08:33] LABS: MALB Creatinine Ratio 12.2 mg/g (0-30)
[2025-02-12 08:54] LABS: Alanine Aminotransferase 25 U/L (6-35); Albumin Level 4.8 g/dL (3.5-5.1); Alkaline Phosphatase 60 U/L (38-126); Anion Gap 9 mmol/L (4-12); Aspartate Amino Transferase 31 U/L (14-36); Bilirubin,Total 1.0 mg/dL (0.2-1.3); Blood Urea Nitrogen 12 mg/dL (7-17); Calcium 9.9 mg/dL (8.4-10.2); Carbon Dioxide 29 mmol/L (22-30); Chloride 102 mmol/L (98-107); Cholesterol 146 mg/dL (0-200); Creatine Kinase 109 U/L (30-135); Estimated Glomerular Filt Rate > 60; Glucose 117 mg/dL (65-110); HDL Direct 56 mg/dL; Osmolality Calculated 290 mOsm/kg (285-295); Potassium 4.0 mmol/L (3.4-5.0); Sodium 140 mmol/L (137-145); Total Protein 8.1 g/dL (6.3-8.2); Triglycerides 335 mg/dL (<150)
[2025-02-12 09:13] LABS: Free T3 3.52 pg/mL (2.18-3.98); Free T4 Free Thyroxine 1.16 ng/dL (0.78-2.19)
[2025-02-12 09:26] LABS: Thyroid Stimulating Hormone 1.750 uIU/mL (0.465-4.680)
== END 2025-02-12 08:00 | disposition home or self-care (01) ==
LOC: CHSLAB 08:01
PROVIDERS: PCP Internal Medicine; Visit Provider Internal Medicine
DX: E55.9 Vitamin D deficiency, unspecified (principal); I10 Essential (primary) hypertension; E03.4 Atrophy of thyroid (acquired); E78.2 Mixed hyperlipidemia; I25.10 Atherosclerotic heart disease of native coronary artery without angina pectoris; E11.59 Type 2 diabetes mellitus with other circulatory complications
CPT/HCPCS: 36415; 80053; 80061; 81001; 82043; 82306; 82550; 83036; 84439; 84443; 84481; 85027

== ENCOUNTER 2025-02-21 10:52 | Outpatient (CLI) | payer BC, SELFPAY ==
--- NOTE | ~2025-02-21 | XR_ITS ---
PROCEDURE(S): 2 views right hip, x-ray INDICATION(S): Pain COMPARISON(S): None. TECHNIQUE: 2 radiographic images were submitted for interpretation. FINDINGS: Bones: There are no fractures seen. There are no destructive lesions or other lesions identified. Joints: There are no dislocations identified. There is no evidence of erosive arthropathy. IMPRESSION: No acute abnormalities are seen. Reviewed, dictated and finalized at location A.
--- OUTSIDE RECORDS SUMMARY | 2025-02-21 11:18 | XMS_ITS | Clinical Summary ---
Author Organization [facility] Address [address] [place] [address] Care Team Providers Care Dragger Out Name Role Phone Nancy Barton MD Primary Care Provider [phone] Source Comments [facility],non-owned Affiliates and Associated Physician Practices is amultiple site organization consisting of ambulatory clinics and hospital sitesin [place], [place], [place] and [place]. This disclosure is being madepursuant to the Care Everywhere program and may not contain all information available regarding this patient. Last updated 18.[facility] Allergies No known active allergies Medications * Be aware that medications may not be up to date on this document. Alwaysverify current medications with the patient. carvedilol (Coreg) 25 MG tablet 5 Active clopidogrel (plaVIX) 75 MG tablet 5 Active estradiol (Estrace) 0.1 MG/GM vaginal cream 5 Active levothyroxine (Synthroid) 75 MCG tablet 5 Active lisinopril (Prinivil; Zestril) 40 MG tablet 5 Active metFORMIN ER 24hr (Glucophage XR) 500 MG tablet 5 Active nitroGLYCERIN (Nitrostat) 0.4 MG tablet 4 Active rosuvastatin (Crestor) 20 MG tablet 5 Active nystatin (Mycostatin) 511285 UNIT/GM ointmentIndica tions:Vulvar itching Use to vulvar skin with the Triamcinolone ointment 0.1% 2-3 times a week 30 g 2 5 Active triamcinolone acetonide (Kenalog) 0.1 % ointmentIndica tions:Lichen sclerosus Use to vulvar skin with the nystatin ointment 2-3 times a week 30 g 2 5 Active Active Problems Problem Noted Date Diagnosed Date Coronary artery disease 12/24/2024 Hyperlipidemia 12/24/2024 Hypertension 12/24/2024 Hypothyroid 12/24/2024 S/P coronary artery stent placement 04/22/2017 Encounters Date Type Department Care Team Description 01/09/2025 Results Follow-Up [facility] - NUTRITION COUNSELOR [address] [place] [address] Bridgette Landry APRN-CNP 01/09/2025 Telephone [facility] - NUTRITION COUNSELOR [address] [place] [address] Bridgette Landry APRN-CNP Results 12/24/2024 11:10 AM CDT Office Visit [facility] - NUTRITION COUNSELOR [address] [place] [address] Bridgette Landry APRN-CNP Lichen sclerosus (Primary Dx); Vulvar itching; Chronic vulvitis 12/24/2024 Travel from Last 3 Months Family History Medical History Relation Name Comments CAD (Coronary Artery Disease) Brother Diabetes; unknown type Brother Hypertension Brother Other Brother vitilgo Thyroid Disease Brother CAD (Coronary Artery Disease) Father Cancer - Liver Father Hypertension Father Hypertension Maternal Grandfather CAD (Coronary Artery Disease) Maternal Grandmother Diabetes; unknown type Maternal Grandmother Cancer - Pancreatic Mother Hypertension Mother Other Mother Thyroid Disease Mother CAD (Coronary Artery Disease) Other maternal aunts & uncles Diabetes; unknown type Other mater nal uncle, maternal first cousins Hypertension Other maternal aunts & uncles Thyroid Disease Other brother, chi ldren, maternal aunt, paternal aunt CAD (Coronary Artery Disease) Paternal Grandfather CVA Paternal Grandfather Hypertension Paternal Grandfather Hypertension Paternal Grandmother Relation Name Status Comments Brother Alive Father Maternal Grandfather Maternal Grandmother Mother Other Paternal Grandfather Paternal Grandmother Social History Tobacco Use Types Packs/Day Years Used Date Smoking Tobacco: Never Smokeless Tobacco: Never Tobacco Cessation:Counseling Given: Not Answered Alcohol Use Standard Drinks/Week Comments Not Asked 0 (1 standard drink = 0.6 oz pur e alcohol) social PHQ-2 Answer Date Recorded Patient Health Questionnaire-2 Score 0 12/24/2024 Comments No Sex and Gender Information Value Date Recorded Sex Assigned at Not on file Legal Sex Female 3:31 PM CDT Gender Identity Not on file Sexual Orientation Not on file Last Filed Vital Signs Vital Sign Reading Time Taken Comments Blood Pressure 126/78 12/24/2024 11:07 AM CDT Pulse - - Temperature - - Respiratory Rate - - Oxygen Saturation - - Inhaled Oxygen Concentration - - Weight 72.3 kg (159 lb 6.4 oz) 12/24/2024 11:07 AM CDT Height 158.8 cm (5' 2.5) 12/24/2024 11:07 AM CD T Body Mass Index 28.69 12/24/2024 11:07 AM CDT Plan of Treatment Upcoming Encounters Date Type Department Care Team (Late st Contact Info) Description 04/07/2025 10:10 AM CEMENT BREAKER Office Visit [facility] - NUTRITION COUNSELOR [address] [place] [address] Bridgette Landry, HUMAN RESOURCE MANAGEMENT INSTRUCTOR-BUTTON MACHINE OPERATOR [address] [place] [address] Health Maintenance Due Date Last Done Comments COLOGUARD (AGES 45-75) - COL ON CA SCREENING 1960 COLON MONITORING 1960 COLONOSCOPY - COLON CA SCREENING 1960 CT COLONOGRAPHY - COLON CA SCREENING 1960 Colorectal Cancer Screening 1960 FIT - COLON CA SCREENING 1960 FLEX SIG - COLON CA SCREENING 1960 MAMMOGRAM 1960 HIV SCREENING 12/10/1975 HEPATITIS C SCREENING 12/05/1978 DTAP/TDAP/TD VACCINES (1 - Tdap) 12/10/1979 PAP SMEAR 1981 PNEUMOCOCCAL VACCINE 50+ (1 of 1 - PCV) 2010 ZOSTER VACCINE (1 of 2) 2010 COVID-19 VACCINE ( - 2023-2 5 season) 2024 INFLUENZA VACCINE (#1) 2024 05/23/2019 SCREENING FOR DIABETES 12/24/2024 Respiratory Syncytial Virus (RSV) Vaccine Pt: or over 60 yrs (1 - 1-dose 75+ series) 12/10/2035 DEPRESSION SCREENING Completed 12/24/2024 HEPATITIS B VACCINE Aged Out No longe r eligible based on patient's age to complete this topic HIB VACCINE Aged Out No longer eligi ble based on patient's age to complete this topic HPV VACCINE Aged Out No longer eligi ble based on patient's age to complete this topic MENINGOCOCCAL (Group B) VACC INE SHARED DECISION-MAKING Aged Out No longer eligibl e based on patient's age to complete this topic MENINGOCOCCAL GROUPS A/C/Y/W VACCINE Aged Out No longer eligible b ased on patient's age to complete this topic Procedures Procedure Name Priority Date/Time Associated Diagnosis Comments CULTURE YEAST Routine 12/24/2024 11:55 AM CDT Lichen sclerosus Vulvar itching from Last 3 Months Results * CULTURE YEAST (12/24/2024 11:55 AM CDT) Culture Yeast with ID [facility] Comment: CULTURE, YEAST, W/IDENTIFICATION Micro Number: [id number] Test Status: Final Specimen Source: Vaginal Specimen Quality: Adequate Result: No yeast isolated Test Performed at: [facility] [address] NAVIN CLAIRE MD Microbiology ENTIRE VAGINA / Unknown 12/24/2024 11:55 AM CDT 12/25/2024 4:13 AM CDT Bridgette Landry HUMAN RESOURCE MANAGEMENT INSTRUCTOR-BUTTON MACHINE OPERATOR LAB - MICROBIOLOGY ORDERABLES Final Result [address] [address] from Last 3 Months Insurance [employer] Care Teams Dragger Out Relationship Specialty Start Date End Date Nancy Barton MD [address] [place] [phone] PCP - General Internal Medicine 12/24/24
--- OUTSIDE RECORDS SUMMARY | 2025-02-21 11:18 | XMS_ITS | Clinical Summary ---
Author Organization [facility] Address [address], [address] [address] Phone Care Team Providers Care Business Rules Analyst Name Role Phone Finesse May MD Unavailable Nancy Barton MD Primary Care Provider [phone] Allergies Active Allergy Reactions Criticality Noted Date [...] Active Active Problems No known active problems Family History Medical History Relation Name Comments [...] on file Legal Sex Female 2:51 PM DIAGNOSTIC CARDIAC SONOGRAPHER Gender Identity Not on file Sexual Orientation Not on file Last Filed Vital Signs Vital Sign Reading Time Taken Comments Blood Pressure 109/72 08/26/2024 1:07 PM CDT Pulse 71 08/26/2024 1:07 PM CDT Temperature 36 C (96.8 F) 08/26/2024 1:07 PM CDT Respiratory Rate 15 08/26/2024 1:07 PM CDT Oxygen Saturation 97% 08/26/2024 1:07 PM CDT Inhaled Oxygen Concentration - - Weight 70.3 kg (155 lb) 08/26/2024 11:35 AM CDT Height 158.8 cm (5' 2.5) 08/26/2024 11:35 AM CD T Body Mass Index 27.9 08/26/2024 11:35 AM CDT Plan of Treatment Health Maintenance Due Date Last Done Comments Hepatitis C Virus (HCV) Screening 1960 Mammogram 1960 Pap Smear 1981 Cervical Cancer Screening (CCS) 1990 HPV/Cotest 1990 Cologuard 2005 Immunochemical Fecal Occult Blood 2005 Zoster Immunization (1 of 2) 2010 Respiratory Syncytial Virus (RSV) Immunization (Adult) (1 - Risk 60-74 years 1-dose series) 2020 Pneumococcal Immunization (5 0+ years) (3 of 3 - PCV20 or PCV21) 05/23/2024 05/23/2019, 08/16/2018 Influenza Immunization (#1) 2024 05/23/2019 SARS-COV-2 Immunization (1 - season) 2024 Colonoscopy 08/26/2029 08/26/2024, 08/26/2024 Colorectal Cancer Screening 08/26/2029 TdaP Immunization Completed 06/15/2023, 01/10/2018 Hepatitis B Immunization Aged Out No longer eligible based on patient's age to complete this topic Human Papillomavirus (HPV) Immunization Aged Out No longer eligible b ased on patient's age to complete this topic Meningococcal Immunization (ACWY) Aged Out No longer eligible b ased on patient's age to complete this topic Rotavirus Immunization Aged Out No lo nger eligible based on patient's age to complete this topic Insurance [facility] Care Teams Business Rules Analyst Relationship Specialty Start Date End Date Nancy Barton MD [address] [place] [address] PCP - General Primary Care 08/02/24 Finesse May MD [address] [address] Consulting Physician Colon and Rectal Surgery 08/02/24
--- OUTSIDE RECORDS SUMMARY | 2025-02-21 11:18 | XMS_ITS | Encounter Summary ---
Author Organization [facility] Address [address] [place] [address] Care Team Providers Care Livestock Farmers Name Role Phone Renny Gambino MD Unavailable [phone] Beulah Anguiano APRN, PRACTICE MANAGER-C Unavailable Nancy Barton MD Primary Care Provider Hasmukh Oden MD Unavailable [phone] Encounter Details Date Type Department Care Team (Late Contact Info) Description 10/04/2022 Abstract [facility] [address] [place] [address] Renny Gambino MD [address] [place] [address] Social History Tobacco Use Types Packs/Day Years Used Date Smoking Tobacco: Never Smokeless Tobacco: Never Alcohol Use Standard Drinks/Week Comments Yes 0 (1 standard drink = 0.6 oz pur e alcohol) rare Comments Unknown Sex and Gender Information Value Date Recorded Sex Assigned at Not on file Legal Sex Female 9:19 PM CDT Gender Identity Female 06/10/2021 11:08 AM LOCKSTITCH FRONT MAKER Sexual Orientation Not on file Occupation Industry Job Start Date Job End Date Not on file Not on file Not on file Not on file documented as of this encounter Plan of Treatment Upcoming Encounters Date Type Department Care Team ([facility] Contact Info) Description 03/10/2025 2:30 PM LOCKSTITCH FRONT MAKER Office Visit [facility] [address] [place] [phone] Beulah Anguiano, CATERPILLAR DRIVER, PRACTICE MANAGER-C [address] [facility] [address] [place] [address] documented as of this encounter Procedures Procedure Name Priority Date/Time Associated Diagnosis Comments LIPID PANEL Routine 02/12/2022 CMP (ABSTRACTED LAB) Routine 02/11/2022 CBC (OUTSIDE LAB) Routine 02/11/2022 HEMOGLOBIN, GLYCOSYLATED Routine 02/11/2022 CK (CPK) Routine 02/11/2022 documented in this encounter Results * LIPID PANEL (02/12/2022) Pathologist [facility] CHOLESTEROL 154 <200 HDL 50 > or=50 TRIGLYCERIDES 349 <150 NON HDL CHOLESTEROL 104 <130 CHOL/HDL RATIO 3.1 <5.0 LDL (CALCULATED) 62 <100 02/12/2022 us Default History Genericprovider LABORATORY Final Result * CBC (OUTSIDE LAB) (02/11/2022) Pathologist [facility] WBC 5.1 3.8 - 10.8 HGB 13.3 11.7 - 15.5 HCT 40.6 35.0 - 45.0 PLT 234 140 - 400 RBC 4.60 3.80 - 5.10 02/11/2022 us Default History Genericprovider LAB-OUTSIDE/ABST RACTED Final Result * CK (CPK) (02/11/2022) Pathologist [facility] CPK 100 29 - 143 TSH 1.82 [...] on filedocumented in this encounter Care Teams Livestock Farmers Relationship Specialty Start Date End Date Nancy Barton MD [address] [place] [address] PCP - General INTERNAL MEDICINE 01/29/18 Renny Gambino MD [address] [place] [address] [place] [employer] Claims Analyst CARDIOVASCULAR DISEASE 12/23/16 11/30/23 Beulah Anguiano, HAFSA, PRACTICE MANAGER-C [address] [facility] [address] [place] [address] CARDIOVASCULAR DISEASE 05/31/17 Hasmukh Oden MD [address] [place] [address] Consulting Physician INTERVENTIONAL CARDIOLOGY 02/18/24 documented as of this encounter
--- OUTSIDE RECORDS SUMMARY | 2025-02-21 11:18 | XMS_ITS | Clinical Summary ---
Author Organization [facility] Address [address] [place] [address] Care Team Providers Care Hr Internship Name Role Phone Beulah Anguiano APRN, NP-C Unavailable Nancy Barton MD Primary Care Provider [phone] Hasmukh Oden MD Unavailable [phone] Allergies Active Allergy Reactions Criticality Noted Date Comments Hydrochlorothiazide Other (see comment) 016 Facial tingling Medications aspirin 81 MG tablet Take by mouth daily. 4 Active levothyroxine 75 MCG tablet Take 1 tablet (75 mcg total) by mouth daily. Active Coenzyme Q10 (CO Q 10 OR) Take 2 tablets by mouth daily. Active Zinc 25 MG Tab Take 25 mg by mouth daily. Active vitamin D3, cholecalciferol , 5000 UNITS capsule Take 1 capsule (125 mcg total) by mouth daily. Active pantoprazole EC 20 MG tablet Take 1 tablet (20 mg total) by mouth daily. 1 Active rosuvastatin 20 MG tablet Take 1 tablet (20 mg total) by mouth daily. 1 Active estradiol (ESTRACE) 0.1 MG/GM vaginal cream Place vaginally 2 (two) times a week. 3 Active Multiple Vitamins-Minera ls (ONE A DAY WOMEN 50 PLUS OR) Take 1 tablet by mouth daily. Active clobetasol (TEMOVATE) 0.05 % ointment Apply topically as needed. 4 Active nitroglycerin (NITROSTAT) 0.[address] 1 tablet (0.4 mg total) under the tongue every 5 (five) minutes as needed for Chest Pain. 25 tablet 1 4 Active chlorthalidone (HYGROTEN) 25 MG tablet Take 0.5 tablets (12.5 mg total) by mouth daily. 45 tablet 2 5 Active lisinopril (PRINIVIL) 40 MG tablet Take 0.5 tablets (20 mg total) by mouth daily. 90 tablet 2 5 Active clopidogrel (PLAVIX) 75 MG tablet TAKE ONE TABLET BY MOUTH DAILY 90 tablet 3 5 Active carvedilol (COREG) 25 MG tablet TAKE ONE TABLET BY MOUTH TWICE A DAY 180 tablet 2 5 Active Active Problems Problem Noted Date Diagnosed Date S/P coronary artery stent placement 04/22/2017 Coronary artery disease Hyperlipidemia Hypertension Hypothyroid Resolved Problems Problem Noted Date Diagnosed Date Resolved Date Abnormal stress test 01/18/2017 017 Encounters Date Type Department Care Team Description 12/26/2024 [facility] [address] [place] [address] Beulah Anguiano, SET UP MECHANIC AUTOMATIC LINE, RELIEF DOCKING MASTER-C Reschedule from Last 3 Months Family History Medical [...] CDT Gender Identity Female 06/10/2021 11:08 AM HEALTH AND SAFETY SPECIALIST Sexual Orientation Not on file Occupation Industry [...] 2:35 PM CDT Height 157.5 cm (5' 2) 02/14/2024 2:35 PM CDT Body Mass Index 29.78 02/14/2024 2:35 PM CDT Plan of Treatment Upcoming Encounters Date Type Department Care Team ([facility] Contact Info) Description 03/10/2025 2:30 PM HEALTH AND SAFETY SPECIALIST [facility] [address] [place] [address] Beulah Anguiano, SET UP MECHANIC AUTOMATIC LINE, RELIEF DOCKING MASTER-C [address] [facility] [address] [place] [address] Health Maintenance Due Date Last Done Comments ASCVD Statin 1960 Cervical Cancer Screening Pap Smear (Age 30 to 64) Every 3 Years 1960 Colorectal Cancer Screening Colonoscopy (10 Years) 1960 Annual Physical 12/10/1963 Hepatitis C 1978 Cervical Cancer Screening Pap with HPV Testing (Age 30 to 64) Every 5 Years 1990 Cervical Cancer Screening with HPV 1990 Mammogram Screening 2000 Zoster Vaccines (1 of 2) 2010 RSV Immunization or 60+ Years (1 - Risk 60-74 years 1-dose series) 2020 Pneumococcal Vaccine: 50+ Years (3 of 3 - PCV20 or PCV21) 05/23/2024 05/23/2019, 08/16/2018 COVID-19 Vaccine ( season) 2024 Influenza Adult (#1) 2025 05/23/2019 ASCVD LDL 01/28/2025 01/29/2024, 10/2023, 01/10/2024, Additional history exists DTaP, Tdap and Td Vaccines (2 - Td or Tdap) 01/11/2028 01/10/2018 Hepatitis A Vaccines Aged Out No long er eligible based on patient's age to complete this topic Meningococcal B Vaccine Aged Out No l onger eligible based on patient's age to complete this topic Meningococcal Vaccine Aged Out No yusuf katie eligible based on patient's age to complete this topic RSV Immunizations Under 20 Months Aged Out No longer eligible based on patient's age to complete this topic Procedures Procedure Name Priority Date/Time Associated Diagnosis Comments FAST/DIR LDL >= 190 MG/DL Routine 01/29/2024 from Last 3 Months or Most Recently Relevant to Health Maintenance Results * FAST/DIR LDL >= 190 MG/DL (01/29/2024) DIRECT LDL 74 0 - 130 01/29/2024 us Default History Genericprovider PROCEDURES-UNRES ULTED Final Result from Last 3 Months or Most Recently Relevant to Health Maintenance Insurance [facility] Care Teams Hr Internship Relationship Specialty Start Date End Date Nancy Barton MD [address] [place] [address] PCP - General INTERNAL MEDICINE 01/29/18 Beulah Anguiano APRN, RELIEF DOCKING MASTER-C [address] [facility] [address] [phone] CARDIOVASCULAR DISEASE 05/31/17 Hasmukh Oden MD [address] [place] [address] Consulting Physician INTERVENTIONAL CARDIOLOGY 02/18/24
--- OUTSIDE RECORDS SUMMARY | 2025-02-21 11:18 | XMS_ITS | Encounter Summary ---
Author Organization [facility] Address [address] [place] [address] Care Team Providers Care Global Logistics Analyst Name Role Phone Renny Gambino MD Unavailable [phone] Beulah Anguiano APRN, DEVELOPMENT CHEMIST-C Unavailable Nancy Barton MD Primary Care Provider [phone] Hasmukh Oden MD Unavailable Encounter Details Date Type Department Care Team (Late Contact Info) Description 11/16/2017 Abstract [facility] [address] [place] [address] Renny Gambino MD [address] [place] [address] Social History Tobacco Use Types Packs/Day Years Used Date Smoking Tobacco: Never Smokeless Tobacco: Never Alcohol Use Standard Drinks/Week Comments Yes 0 (1 standard drink = 0.6 oz pur e alcohol) rare Comments Unknown Sex and Gender Information Value Date Recorded Sex Assigned at Not on file Legal Sex Female 9:19 PM CDT Gender Identity Female 06/10/2021 11:08 AM SOCIAL MEDIA EDITOR Sexual Orientation Not on file Occupation Industry Job Start Date Job End Date Not on file Not on file Not on file Not on file documented as of this encounter Plan of Treatment Upcoming Encounters Date Type Department Care Team (Late Contact Info) Description 03/10/2025 2:30 PM SOCIAL MEDIA EDITOR [facility] [address] [place] [address] Beulah Anguiano APRN, DEVELOPMENT CHEMIST-C [address] [facility] [address] [place] [address] documented as of this encounter [...] on filedocumented in this encounter Care Teams Global Logistics Analyst Relationship Specialty Start Date End Date Nancy Barton MD [address] [place] [address] PCP - General INTERNAL MEDICINE 01/29/18 Renny Gambino MD [address] [place] [address] [place] Manager Crisis CARDIOVASCULAR DISEASE 12/23/16 11/30/23 Beulah Anguiano APRN, DEVELOPMENT CHEMIST-C [address] [facility] [address] [place] [address] CARDIOVASCULAR DISEASE 05/31/17 Hasmukh Oden MD [address] [place] [address] Consulting Physician INTERVENTIONAL CARDIOLOGY 02/18/24 documented as of this encounter
--- OUTSIDE RECORDS SUMMARY | 2025-02-21 11:18 | XMS_ITS | Encounter Summary ---
Author Organization [facility] Address [address] [place] [address] Care Team Providers Care Field Marketing Director Name Role Phone Nancy Barton MD Primary Care Provider [phone] Encounter Details Date Type Department Care Team (Late Contact Info) Description 01/09/2025 Results Follow-Up [facility] - CASHIER COURTESY BOOTH [address] [place] [address] Bridgette Landry, PHYSICAL THERAPY TEACHER-PET CARETAKER [address] [place] [address] Social History Tobacco Use Types Packs/Day Years Used Date Smoking Tobacco: Never Smokeless Tobacco: Never Alcohol Use Standard Drinks/Week Comments Not Asked 0 (1 standard drink = 0.6 oz pur e alcohol) social PHQ-2 Answer Date Recorded Patient Health Questionnaire-2 Score 0 12/24/2024 Comments No Sex and Gender Information Value Date Recorded Sex Assigned at Not on file Legal Sex Female 3:31 PM CDT Gender Identity Not on file Sexual Orientation Not on file documented as of this encounter Plan of Treatment Upcoming Encounters Date Type Department Care Team (Late Contact Info) Description 04/07/2025 10:10 AM AERONAUTICAL ENGINEERING OFFICER Office Visit [facility] - CASHIER COURTESY BOOTH [address] [place] [address] Bridgette Landry, PHYSICAL THERAPY TEACHER-PET CARETAKER [address] [place] [address] documented as of this encounter Visit Diagnoses Not on filedocumented in this encounter Care Teams Field Marketing Director Relationship Specialty Start Date End Date Nancy Barton MD [address] [place] [address] PCP - General Internal Medicine 12/24/24 documented as of this encounter
--- OUTSIDE RECORDS SUMMARY | 2025-02-21 11:18 | XMS_ITS | Encounter Summary ---
Author Organization [facility] Address [address] [place] [address] Care Team Providers Care Rubber Printing Machine Operator Name Role Phone Renny Gambino MD Unavailable [phone] Beulah Anguiano APRN, FABRIC PATTERN GRADER-C Unavailable Nancy Barton MD Primary Care Provider [phone] Hasmukh Oden MD Unavailable Encounter Details Date Type Department Care Team (Late Contact Info) Description 05/12/2023 Abstract [facility] [address] [place] [phone] Renny Gambino MD [address] [place] [phone] Social History Tobacco Use Types Packs/Day Years Used Date Smoking Tobacco: Never Smokeless Tobacco: Never Alcohol Use Standard Drinks/Week Comments Yes 0 (1 standard drink = 0.6 oz pur e alcohol) Occasionally, very seldom Comments Unknown Sex and Gender Information Value Date Recorded Sex Assigned at Not on file Legal Sex Female 9:19 PM CDT Gender Identity Female 06/10/2021 11:08 AM WEALTH MANAGEMENT ADVISOR Sexual Orientation Not on file Occupation Industry Job Start Date Job End Date Not on file Not on file Not on file Not on file documented as of this encounter Plan of Treatment Upcoming Encounters Date Type Department Care Team ([facility] Contact Info) Description 03/10/2025 2:30 PM WEALTH MANAGEMENT ADVISOR [facility] [address] [place] [address] Beulah Anguiano, SUPERVISOR ORDER TAKERS, FABRIC PATTERN GRADER-C [address] [facility] [address] [place] [address] documented as of this encounter [...] Final Result * TSH (OUTSIDE LAB) (10/18/2022) TSH 1.48 0.40 - 4.50 FREE T4 1.3 0.8 - 1.8 FREE T3 2.8 2.3 - 4.2 10/18/2022 Result Nadir Barton MD LAB-OUTSIDE/ABSTRACTED Final Result * HEMOGLOBIN, GLYCOSYLATED (10/18/2022) Pathologist [facility] HGB A1C 6.3 <5.7 % 10/18/2022 Result Nadir Barton MD LABORATORY Final Result * LIPID PANEL (10/18/2022) CHOLESTEROL 151 <200 HDL 49 >or=50 TRIGLYCERIDES 291 <150 NON HDL CHOLESTEROL 102 <130 CHOL/HDL RATIO 3.1 <5.0 LDL (CALCULATED) 64 10/18/2022 Result Nadir Barton MD LABORATORY Final Result documented in this encounter Visit Diagnoses Not on filedocumented in this encounter Care Teams Rubber Printing Machine Operator Relationship Specialty Start Date End Date Nancy Barton MD [address] [place] [phone] PCP - General INTERNAL MEDICINE 01/29/18 Renny Gambino MD [address] [place] [phone] [place] [employer] CARDIOVASCULAR DISEASE 12/23/16 11/30/23 Beulah Anguiano APRN, FABRIC PATTERN GRADER-C [address] [facility] [address] [place] [phone] CARDIOVASCULAR DISEASE 05/31/17 Hasmukh Oden MD [address] [place] [address] Consulting Physician INTERVENTIONAL CARDIOLOGY 02/18/24 documented as of this encounter
--- OUTSIDE RECORDS SUMMARY | 2025-02-21 11:18 | XMS_ITS | Encounter Summary ---
Author Organization [facility] Address [address] [place] [address] Care Team Providers Care Windows Server Specialist Name Role Phone Renny Gambino MD Unavailable [phone] Beulah Anguiano APRN, TOW MOTOR OPERATOR-C Unavailable Nancy Barton MD Primary Care Provider Hasmukh Oden MD Unavailable Encounter Details Date Type Department Care Team (Late Contact Info) Description 08/17/2023 Abstract [facility] [address] [place] [phone] Renny Gambino MD [address] [place] [phone] Social History Tobacco Use Types Packs/Day Years Used Date Smoking Tobacco: Never Smokeless Tobacco: Never Alcohol Use Standard Drinks/Week Comments Yes 0 (1 standard drink = 0.6 oz pur e alcohol) Occasionally, very seldom Comments Unknown Sex and Gender Information Value Date Recorded Sex Assigned at Not on file Legal Sex Female 9:19 PM CDT Gender Identity Female 06/10/2021 11:08 AM COMPOSITION TEACHER Sexual Orientation Not on file Occupation Industry Job Start Date Job End Date Not on file Not on file Not on file Not on file documented as of this encounter Plan of Treatment Upcoming Encounters Date Type Department Care Team ([facility] Contact Info) Description 03/10/2025 2:30 PM COMPOSITION TEACHER [facility] [address] [place] [address] Beulah Anguiano, SET ILLUSTRATOR, TOW MOTOR OPERATOR-C [address] [facility] [address] [place] [address] documented as of this encounter [...] on filedocumented in this encounter Care Teams Windows Server Specialist Relationship Specialty Start Date End Date Nancy Barton MD [address] [place] [phone] PCP - General INTERNAL MEDICINE 01/29/18 Renny Gambino MD [address] [place] [phone] [facility] CARDIOVASCULAR DISEASE 12/23/16 11/30/23 Beulah Anguiano APRN, TOW MOTOR OPERATOR-C [address] [facility] [address] [place] [phone] CARDIOVASCULAR DISEASE 05/31/17 Hasmukh Oden MD [address] [place] [address] Consulting Physician INTERVENTIONAL CARDIOLOGY 02/18/24 documented as of this encounter
== END 2025-02-21 10:53 | disposition home or self-care (01) ==
PROVIDERS: PCP Internal Medicine; Visit Provider Internal Medicine
DX: R21 Rash and other nonspecific skin eruption (principal); M25.551 Pain in right hip
CPT/HCPCS: 73502; 87070; 87075; 87101; 87206